=== PATIENT | female | born 1990 | race American Indian/Alaskan Native ===

== ENCOUNTER 2018-10-24 16:31 | Outpatient (CLI) | payer BC, MEDICAID ==
[2018-10-24] MEDS ORDERED: LACTATED RINGERS 500 ML IV ONE (17:07)
[2018-10-24 17:43] LABS: Bilirubin,Urine NEG (Negative); Blood,Urine NEG (Negative); Color,Urine Yellow (Yellow); Mucus,Urine FEW /HPF; Protein,Urine <15 mg/dL mg/dL (Negative); Urobilinogen,Urine < 2.0 mg/dL (<2.0); WBC,Urine < 1.0 /HPF (0.0-6.0)
[2018-10-24 18:20] LABS: Alanine Aminotransferase 25 units/L (7-56); Uric Acid 3.1 mg/dL (3.5-7.6)
[2018-10-24 18:25] LABS: Mean Corpuscular HGB Conc 36 % (30-34); Mean Corpuscular Volume 74 fl (79-97); Platelet Count 177 K/mm3 (140-440); Red Blood Count 4.43 M/mm3 (3.65-5.03)
[2018-10-24 18:29] LABS: Hematocrit 32.9 % (30.3-42.9)
[2018-10-24 19:50] VITALS: BP 138/93
--- NOTE | 2018-10-24 20:30 | Ultrasound Report ---
PROCEDURE: US OB BPP WO NON-STRESS TECHNIQUE: Limited ultrasound pelvis for BPP HISTORY: well being . RIZ[place]NA. Estimated age 36 weeks 6 days with EDC 11/15/2018 COMPARISONS: 10/24/2018 FINDINGS: Biophysical profile scoring 2 movement 2 tone 2 breathing 2fluid 8/8 overall score Presentation: Cephalic Activity: Monitored Placenta location: Anterior Cardiac motion: 152 BPM using M-mode doppler Amniotic Fluid Volume: Adequate RIZ[place]NA 7.4 cm (normal) IMPRESSION: Single viable at 36 weeks 6 days with 8/8 biophysical profile score This document is electronically signed by Mónica Wolff MD., October 24 2018 08:28:39 PM ET
--- NOTE | 2018-10-24 20:31 | Ultrasound Report ---
PROCEDURE: US OB LIMITED TECHNIQUE: Limited ultrasound pelvis for RIZ[place]NA HISTORY: well being . [place]IZ[place]NA. Estimated age 36 weeks 6 days with EDC 11/15/2018 COMPARISONS: 10/24/2018 FINDINGS: Biophysical profile scoring 2 movement 2 tone 2 breathing 2fluid / overall score Presentation: Cephalic Activity: Monitored Placenta location: Anterior Cardiac motion: 152 BPM using M-mode doppler Amniotic Fluid Volume: Adequate [place]IZ[place] 7.4 cm (normal) IMPRESSION: Single viable at 36 weeks 6 days with 7.4 cm RIZWANA which is normal. This document is electronically signed by Mónica Wolff MD., October 24 2018 08:29:58 PM ET
== END 2018-10-24 20:00 | disposition home or self-care (01) ==
LOC: TRG 16:31
PROVIDERS: ATTEND Obstetrics & Gynecology
DX: O47.03 False labor before 37 completed weeks of gestation, third trimester (principal); Z3A.37 37 weeks gestation of pregnancy
CPT/HCPCS: 36415; 59025; 76815; 76819; 81001; 82565; 83615; 84450; 84460; 84550; 85027

== ENCOUNTER 2018-10-29 14:03 | Inpatient (IN) | payer BC, MEDICAID ==
[2018-10-29] MEDS ORDERED: NARCAN 0.4 MG/1 ML IV PRN (17:00)
[2018-10-29] MEDS ORDERED: MINERAL OIL PO PRN (17:00)
[2018-10-29] MEDS ORDERED: SUBLIMAZE IV PRN (17:00)
[2018-10-29] MEDS ORDERED: BRETHINE SUB-Q PRN (17:00)
[2018-10-29] MEDS ORDERED: PITOCin/NS 30 UNIT/500ML 30 UNITS/500 ML BAG IV SCH ×2 (17:00)
[2018-10-29] MEDS ORDERED: PHENERGAN PO PRN (17:00)
[2018-10-29] MEDS ORDERED: BRETHINE IVP PRN (17:00)
[2018-10-29] MEDS ORDERED: STADOL IV PRN (17:00)
[2018-10-29] MEDS ORDERED: PITOCin/NS 20 UNIT/1000ML DRIP 20 UNITS/1,000 ML BAG IV SCH (17:00)
[2018-10-29] MEDS ORDERED: ZOFRAN IV PRN (17:00)
--- NOTE | 2018-10-29 17:10 | History and Physical Report ---
History of Present Illness Date of examination: 10/29/18 Date of admission: 10/29/18 Chief complaint: Headache, vomiting, and elevated BP History of present illness: Pt has been experiencing headache since yesterday, and vomited today before presenting to triage. Her BP per her RN sister was mild range. She was evaluated at [facility] 5 days ago for preeclampsia, and labs were normal. BP was mild range. She is feeling +FM, no LOF, contractions, or vaginal bleeding. Past History Past Medical History: no pertinent history Past Surgical History: D&C Social history: no significant social history - Obstetrical History Expected Date of Delivery: 11/15/18 Actual Gestation: 37 Week(s) 4 Day(s) : 3 Para: 0 Hx # Term Pregnancies: 0 Number of Pregnancies: 0 Spontaneous Abortions: 1 Induced : 1 Number of Living Children: 0 Medications and Allergies Allergies Allergy/AdvReac Type Severity Reaction Status Date / Time No Known Allergies Allergy Verified 10/24/18 17:10 Active Meds: Active Medications Butorphanol Tartrate (Stadol) 1 mg IV Q2H PRN PRN Reason: Pain, Moderate (4-6) Ephedrine Sulfate (Ephedrine Sulfate) 10 mg IV Q2M PRN PRN Reason: Hypotension Fentanyl (Sublimaze) 100 mcg IV Q2H PRN PRN Reason: Labor Pain Oxytocin/Sodium Chloride (Pitocin/Ns 20 Unit/1000ml Drip) 20 units in 1,000 mls @ 125 mls/hr IV DIRECT BEAU Oxytocin/Sodium Chloride (Pitocin/Ns 30 Unit/500ml) 30 units in 500 mls @ 1 mls/hr IV TITR BEAU; Protocol Oxytocin/Sodium Chloride (Pitocin/Ns 30 Unit/500ml) 30 units in 500 mls @ 2 mls/hr IV TITR BEAU; Protocol Lactated Ringer's (Lactated Ringers) 1,000 mls @ 125 mls/hr IV DIRECT BEAU Ampicillin Sodium (Ampicillin/Ns 2 Gm/100 Ml) 2 gm in 100 mls @ 100 mls/hr IV ONCE ONE; Protocol Stop: 10/29/18 17:59 Lidocaine (Xylocaine 2%) 20 ml INFILTRATI ONCE ONE Stop: 10/29/18 17:01 Mineral Oil (Mineral Oil) 30 ml PO QHS PRN PRN Reason: Constipation Naloxone HCl (Narcan 0.4 Mg/1 Ml) 0.1 mg IV Q2MIN PRN PRN Reason: Res Rate </= 8 or 02 SAT < 92% Ondansetron HCl (Zofran) 4 mg IV Q8H PRN PRN Reason: Nausea And Vomiting Promethazine HCl (Phenergan) 25 mg PO Q6H PRN PRN Reason: Nausea And Vomiting Terbutaline Sulfate (Brethine) 0.25 mg SUB-Q ONCE PRN PRN Reason: Hyperstimulation/Hypertonicity Terbutaline Sulfate (Brethine) 0.25 mg IVP ONCE PRN PRN Reason: Hyperstimulation/Hypertonicity Review of Systems Constitutional: chronic headaches Eyes: no blurred vision, no photophobia Cardiovascular: edema (Bilateral wrists), high blood pressure, leg edema, no chest pain, no shortness of breath Respiratory: no shortness of breath Breasts: deferred Gastrointestinal: nausea, vomiting, no abdominal pain Genitourinary: no vaginal bleeding, no vaginal discharge, no leakage of fluid Neurological: headaches, no seizures - Vital Signs Vital signs: Vital Signs Pulse BP 84 130/83 10/29/18 14:31 10/29/18 14:31 Temp Pulse Resp BP Pulse Ox 91 H 18 157/78 10/29/18 16:47 10/29/18 14:48 10/29/18 16:47 - Physical Exam Breasts: Positive: deferred Cardiovascular: Regular rate, Normal S1, Normal S2, No murmurs Lungs: Positive: Clear to auscultation, Normal air movement Abdomen: Positive: normal appearance, soft Genitourinary (Female): Positive: normal external genitalia, normal perenium Vagina: Positive: normal moisture Cervix: Positive: other (3.5/50/-1) Uterus: Positive: normal size, normal contour Deep Tendon Reflex Grade: Normal +2 - Obstetrical FHR: auscultation normal, category 1 Uterine Contraction Monitor Mode: External Cervical Dilatation: 3.5 Cervical Effacement Percentage: 50 station: -1 Uterine Contraction Pattern: Absent Results All other labs normal. Assessment and Plan A: 1. 27 yo at 37.4 wks EGA with preeclampsia 2. GBS positive 3. Cervix favorable P: 1. Begin Magnesium Sulfate infusion, check serum levels q6hrs, neuro checks q4hrs 2. Start Ampicillin infusion 3. Begin Pitocin induction of labor, anticipate - Patient Problems (1) Preeclampsia Onset Date: ~10/29/18 Current Visit: Yes Status: Acute
[2018-10-29] MEDS ORDERED: NORMODYNE IV ONE (17:25)
[2018-10-29 17:42] LABS: Hematocrit 35.8 % (30.3-42.9); Hemoglobin 12.4 gm/dl (10.1-14.3); Mean Corpuscular HGB Conc 35 % (30-34); Mean Corpuscular Volume 75 fl (79-97); Platelet Count 189 K/mm3 (140-440); Red Blood Count 4.76 M/mm3 (3.65-5.03); Red Cell Distribution Width 15.1 % (13.2-15.2)
[2018-10-29 17:57] LABS: Uric Acid 2.7 mg/dL (3.5-7.6)
[2018-10-29] MEDS ORDERED: LACTATED RINGERS 1,000 ML IV SCH ×2 (18:00)
[2018-10-29] MEDS ORDERED: XYLOCAINE 2% INFILTRATI ONE (18:00)
[2018-10-29] MEDS ORDERED: AMPICILLIN/NS 2 GM/100 ML 2 GM/100 ML BAG IV ONE (18:00)
[2018-10-29] MEDS ORDERED: MAGNESIUM SULFATE 4GM/100ML 4 GM/100 ML BAG IV ONE (18:00)
[2018-10-29] MEDS: MAGNESIUM SULFATE 40GM/1000ML 40 GM/1,000 ML BAG IV SCH (18:12)
[2018-10-29 18:13] LABS: Bilirubin,Urine NEG (Negative); Blood,Urine SM (Negative); Color,Urine Yellow (Yellow); Protein,Urine <15 mg/dL mg/dL (Negative)
[2018-10-29 18:28] LABS: Creatinine,Urine 117.8 mg/dL (0.1-20.0); Protein/Creatinine Ratio,Urine 0.2
[2018-10-29] MEDS: AMPICILLIN/NS 1 GM/50 ML 1 GM/50 ML BAG IV SCH (22:23)
[2018-10-30] MEDS: AMPICILLIN/NS 1 GM/50 ML 1 GM/50 ML BAG IV SCH ×2 (02:49→06:30)
[2018-10-30] MEDS ORDERED: MARCAINE 0.25% INFILTRATI ONE (05:22)
[2018-10-30] MEDS ORDERED: fentaNYL-BUPIV 2 MCG/ML-0.125% 200 MCG/100 ML BAG EPIDURAL ONE (05:49)
--- NOTE | 2018-10-30 07:57 | Progress Note ---
Assessment and Plan A/P IUP 37+ weeks PIH labs normal on mag continue pitocin for IOL of preeclampsia arom clear expect vaginal delivery Subjective - Subjective Date of service: 10/30/18 Principal diagnosis: PIH, obesity, IOL Patient reports: movement normal, contractions, no new complaints, no loss of fluid Objective - Vital Signs Vital Signs: Vital Signs - 12hr 10/29/18 10/29/18 10/29/18 19:56 20:01 20:05 Temperature Pulse Rate 90 94 H 82 Respiratory Rate Blood Pressure Blood Pressure [Left] O2 Sat by Pulse 100 100 100 Oximetry 10/29/18 10/29/18 10/29/18 20:10 20:16 20:21 Temperature Pulse Rate 85 84 82 Respiratory Rate Blood Pressure Blood Pressure [Left] O2 Sat by Pulse 100 100 100 Oximetry 10/29/18 10/29/18 10/29/18 20:26 20:30 20:35 Temperature Pulse Rate 89 104 H 88 Respiratory Rate Blood Pressure Blood Pressure [Left] O2 Sat by Pulse 100 93 100 Oximetry 10/29/18 10/29/18 10/29/18 20:41 20:45 20:47 Temperature Pulse Rate 89 93 H 79 Respiratory Rate Blood Pressure Blood Pressure [Left] O2 Sat by Pulse 100 100 94 Oximetry 10/29/18 10/29/18 10/29/18 20:50 20:52 20:55 Temperature Pulse Rate 85 83 94 H Respiratory Rate Blood Pressure 147/85 Blood Pressure [Left] O2 Sat by Pulse 100 100 Oximetry 10/29/18 10/29/18 10/29/18 21:01 21:06 21:11 Temperature Pulse Rate 86 84 91 H Respiratory Rate Blood Pressure Blood Pressure [Left] O2 Sat by Pulse 100 91 100 Oximetry 10/29/18 10/29/18 10/29/18 21:16 21:21 21:26 Temperature Pulse Rate 91 H 83 86 Respiratory Rate Blood Pressure Blood Pressure [Left] O2 Sat by Pulse 100 99 100 Oximetry 10/29/18 10/29/18 10/29/18 21:31 21:36 21:41 Temperature Pulse Rate 82 95 H 92 H Respiratory Rate Blood Pressure Blood Pressure [Left] O2 Sat by Pulse 99 99 99 Oximetry 10/29/18 10/29/18 10/29/18 21:46 21:51 21:53 Temperature Pulse Rate 88 94 H 84 Respiratory Rate Blood Pressure 154/90 Blood Pressure [Left] O2 Sat by Pulse 100 98 Oximetry 10/29/18 10/29/18 10/29/18 21:56 22:01 22:06 Temperature Pulse Rate 88 82 96 H Respiratory Rate Blood Pressure Blood Pressure [Left] O2 Sat by Pulse 99 100 100 Oximetry 10/29/18 10/29/18 10/29/18 22:11 22:16 22:21 Temperature Pulse Rate 87 97 H 91 H Respiratory Rate Blood Pressure Blood Pressure [Left] O2 Sat by Pulse 100 100 100 Oximetry 10/29/18 10/29/18 10/29/18 22:26 22:31 22:36 Temperature Pulse Rate 89 86 88 Respiratory Rate Blood Pressure Blood Pressure [Left] O2 Sat by Pulse 100 100 100 Oximetry 10/29/18 10/29/18 10/29/18 22:41 22:46 22:51 Temperature Pulse Rate 82 88 89 Respiratory Rate Blood Pressure Blood Pressure [Left] O2 Sat by Pulse 100 100 100 Oximetry 10/29/18 10/29/18 10/29/18 22:52 22:56 23:01 Temperature Pulse Rate 78 84 87 Respiratory Rate Blood Pressure 136/90 Blood Pressure [Left] O2 Sat by Pulse 100 100 Oximetry 10/29/18 10/29/18 10/29/18 23:06 23:11 23:16 Temperature Pulse Rate 78 88 93 H Respiratory Rate Blood Pressure Blood Pressure [Left] O2 Sat by Pulse 100 100 100 Oximetry 10/29/18 10/29/18 10/29/18 23:18 23:19 23:21 Temperature 96.8 F L Pulse Rate 91 H 89 84 Respiratory 18 Rate Blood Pressure 158/92 Blood Pressure 156/92 [Left] O2 Sat by Pulse 100 100 Oximetry 10/29/18 10/29/18 10/29/18 23:26 23:31 23:36 Temperature Pulse Rate 89 82 88 Respiratory Rate Blood Pressure Blood Pressure [Left] O2 Sat by Pulse 100 100 100 Oximetry 10/29/18 10/29/18 10/29/18 23:41 23:46 23:51 Temperature Pulse Rate 87 89 83 Respiratory Rate Blood Pressure 146/93 Blood Pressure [Left] O2 Sat by Pulse 100 100 100 Oximetry 10/29/18 10/30/18 10/30/18 23:56 00:01 00:06 Temperature Pulse Rate 82 87 82 Respiratory Rate Blood Pressure Blood Pressure [Left] O2 Sat by Pulse 100 100 100 Oximetry 10/30/18 10/30/18 10/30/18 00:11 00:16 00:20 Temperature Pulse Rate 94 H 83 109 H Respiratory Rate Blood Pressure Blood Pressure [Left] O2 Sat by Pulse 100 100 92 Oximetry 10/30/18 10/30/18 10/30/18 00:21 00:26 00:31 Temperature Pulse Rate 104 H 80 92 H Respiratory Rate Blood Pressure Blood Pressure [Left] O2 Sat by Pulse 97 100 100 Oximetry 10/30/18 10/30/18 10/30/18 00:36 00:41 00:46 Temperature Pulse Rate 83 83 84 Respiratory Rate Blood Pressure Blood Pressure [Left] O2 Sat by Pulse 100 100 100 Oximetry 10/30/18 10/30/18 10/30/18 00:51 00:56 01:01 Temperature Pulse Rate 104 H 83 93 H Respiratory Rate Blood Pressure 154/90 Blood Pressure [Left] O2 Sat by Pulse 74 L 100 100 Oximetry 10/30/18 10/30/18 10/30/18 01:06 01:11 01:16 Temperature Pulse Rate 82 100 H 103 H Respiratory Rate Blood Pressure Blood Pressure [Left] O2 Sat by Pulse 100 100 100 Oximetry 10/30/18 10/30/18 10/30/18 01:21 01:26 01:31 Temperature Pulse Rate 81 84 82 Respiratory Rate Blood Pressure Blood Pressure [Left] O2 Sat by Pulse 100 100 100 Oximetry 10/30/18 10/30/18 10/30/18 01:36 01:41 01:43 Temperature Pulse Rate 94 H 93 H 104 H Respiratory Rate Blood Pressure Blood Pressure [Left] O2 Sat by Pulse 100 100 76 L Oximetry 10/30/18 10/30/18 10/30/18 01:46 01:51 01:52 Temperature Pulse Rate 90 95 H 86 Respiratory Rate Blood Pressure 145/82 Blood Pressure [Left] O2 Sat by Pulse 100 99 Oximetry 10/30/18 10/30/18 10/30/18 01:54 01:56 02:01 Temperature Pulse Rate 35 L 86 87 Respiratory Rate Blood Pressure Blood Pressure [Left] O2 Sat by Pulse 94 100 100 Oximetry 10/30/18 10/30/18 10/30/18 02:06 02:11 02:16 Temperature Pulse Rate 88 87 88 Respiratory Rate Blood Pressure Blood Pressure [Left] O2 Sat by Pulse 100 100 100 Oximetry 10/30/18 10/30/18 10/30/18 02:21 02:26 02:30 Temperature Pulse Rate 87 98 H 91 H Respiratory Rate Blood Pressure Blood Pressure [Left] O2 Sat by Pulse 100 100 86 Oximetry 10/30/18 10/30/18 10/30/18 02:31 02:36 02:41 Temperature Pulse Rate 90 92 H 84 Respiratory Rate Blood Pressure Blood Pressure [Left] O2 Sat by Pulse 100 100 100 Oximetry 10/30/18 10/30/18 10/30/18 02:46 02:51 02:56 Temperature Pulse Rate 89 90 103 H Respiratory Rate Blood Pressure 156/101 Blood Pressure [Left] O2 Sat by Pulse 99 100 100 Oximetry 10/30/18 10/30/18 10/30/18 03:01 03:06 03:11 Temperature Pulse Rate 87 89 91 H Respiratory Rate Blood Pressure Blood Pressure [Left] O2 Sat by Pulse 100 100 99 Oximetry 10/30/18 10/30/18 10/30/18 03:16 03:21 03:26 Temperature Pulse Rate 86 102 H 89 Respiratory Rate Blood Pressure Blood Pressure [Left] O2 Sat by Pulse 99 100 98 Oximetry 10/30/18 10/30/18 10/30/18 03:31 03:36 03:41 Temperature Pulse Rate 89 92 H 102 H Respiratory Rate Blood Pressure Blood Pressure [Left] O2 Sat by Pulse 98 98 97 Oximetry 10/30/18 10/30/18 10/30/18 03:46 03:51 03:56 Temperature Pulse Rate 83 86 95 H Respiratory Rate Blood Pressure 142/90 Blood Pressure [Left] O2 Sat by Pulse 99 97 99 Oximetry 10/30/18 10/30/18 10/30/18 04:00 04:01 04:06 Temperature 97.7 F Pulse Rate 90 100 H 94 H Respiratory Rate Blood Pressure Blood Pressure 140/90 [Left] O2 Sat by Pulse 98 100 Oximetry 10/30/18 10/30/18 10/30/18 04:11 04:16 04:21 Temperature Pulse Rate 83 88 91 H Respiratory Rate Blood Pressure Blood Pressure [Left] O2 Sat by Pulse 100 98 99 Oximetry 10/30/18 10/30/18 10/30/18 04:26 04:31 04:36 Temperature Pulse Rate 92 H 85 91 H Respiratory Rate Blood Pressure Blood Pressure [Left] O2 Sat by Pulse 98 98 97 Oximetry 10/30/18 10/30/18 10/30/18 04:37 04:41 04:46 Temperature Pulse Rate 100 H 90 95 H Respiratory Rate Blood Pressure Blood Pressure [Left] O2 Sat by Pulse 86 100 100 Oximetry 10/30/18 10/30/18 10/30/18 04:51 04:56 05:00 Temperature Pulse Rate 96 H 91 H 97 H Respiratory Rate Blood Pressure 151/105 Blood Pressure [Left] O2 Sat by Pulse 100 100 69 L Oximetry 10/30/18 10/30/18 10/30/18 05:01 05:06 05:11 Temperature Pulse Rate 100 H 105 H 99 H Respiratory Rate Blood Pressure Blood Pressure [Left] O2 Sat by Pulse 100 100 100 Oximetry 10/30/18 10/30/18 10/30/18 05:16 05:20 05:21 Temperature Pulse Rate 96 H 110 H 110 H Respiratory Rate Blood Pressure Blood Pressure [Left] O2 Sat by Pulse 100 83 L 100 Oximetry 10/30/18 10/30/18 10/30/18 05:28 05:29 05:34 Temperature Pulse Rate 108 H 103 H 101 H Respiratory Rate Blood Pressure Blood Pressure [Left] O2 Sat by Pulse 68 L 100 100 Oximetry 10/30/18 10/30/18 10/30/18 05:35 05:38 05:39 Temperature Pulse Rate 98 H 104 H 99 H Respiratory Rate Blood Pressure 140/93 144/99 Blood Pressure [Left] O2 Sat by Pulse 99 Oximetry 10/30/18 10/30/18 10/30/18 05:41 05:44 05:47 Temperature Pulse Rate 100 H 99 H 96 H Respiratory Rate Blood Pressure 149/88 142/90 140/85 Blood Pressure [Left] O2 Sat by Pulse 83 L Oximetry 10/30/18 10/30/18 10/30/18 05:49 05:50 05:53 Temperature Pulse Rate 93 H 94 H Respiratory 18 Rate Blood Pressure 144/89 155/87 Blood Pressure [Left] O2 Sat by Pulse 100 Oximetry 10/30/18 10/30/18 10/30/18 05:54 05:56 05:59 Temperature Pulse Rate 94 H 98 H 90 Respiratory Rate Blood Pressure 150/86 146/86 Blood Pressure [Left] O2 Sat by Pulse 100 Oximetry 10/30/18 10/30/18 10/30/18 06:00 06:02 06:05 Temperature Pulse Rate 91 H 94 H 93 H Respiratory Rate Blood Pressure 147/85 143/88 Blood Pressure [Left] O2 Sat by Pulse 100 Oximetry 10/30/18 10/30/18 10/30/18 06:06 06:11 06:15 Temperature Pulse Rate 92 H 92 H 101 H Respiratory Rate Blood Pressure 143/92 Blood Pressure [Left] O2 Sat by Pulse 100 100 Oximetry 10/30/18 10/30/18 10/30/18 06:16 06:26 06:35 Temperature Pulse Rate 92 H 96 H 93 H Respiratory Rate Blood Pressure 152/89 153/92 Blood Pressure [Left] O2 Sat by Pulse 100 Oximetry 10/30/18 10/30/18 10/30/18 06:36 06:37 06:42 Temperature Pulse Rate 63 89 90 Respiratory Rate Blood Pressure Blood Pressure [Left] O2 Sat by Pulse 89 100 100 Oximetry 10/30/18 10/30/18 10/30/18 06:45 06:47 06:52 Temperature Pulse Rate 92 H 94 H 94 H Respiratory Rate Blood Pressure 143/86 Blood Pressure [Left] O2 Sat by Pulse 98 100 Oximetry 10/30/18 10/30/18 10/30/18 06:55 06:57 07:02 Temperature Pulse Rate 94 H 89 88 Respiratory Rate Blood Pressure 137/85 Blood Pressure [Left] O2 Sat by Pulse 99 99 Oximetry 10/30/18 10/30/18 10/30/18 07:06 07:07 07:12 Temperature Pulse Rate 85 95 H 89 Respiratory Rate Blood Pressure 142/92 Blood Pressure [Left] O2 Sat by Pulse 98 100 Oximetry 10/30/18 10/30/18 10/30/18 07:15 07:17 07:22 Temperature Pulse Rate 85 89 104 H Respiratory Rate Blood Pressure 145/92 Blood Pressure [Left] O2 Sat by Pulse 99 99 Oximetry 10/30/18 10/30/18 10/30/18 07:25 07:27 07:30 Temperature Pulse Rate 94 H 87 94 H Respiratory Rate Blood Pressure 144/96 Blood Pressure [Left] O2 Sat by Pulse 86 98 92 Oximetry 10/30/18 10/30/18 10/30/18 07:32 07:35 07:37 Temperature Pulse Rate 87 101 H 93 H Respiratory Rate Blood Pressure 156/97 Blood Pressure [Left] O2 Sat by Pulse 98 98 Oximetry 10/30/18 10/30/18 10/30/18 07:42 07:45 07:46 Temperature Pulse Rate 92 H 89 79 Respiratory Rate Blood Pressure 139/93 Blood Pressure [Left] O2 Sat by Pulse 98 76 L Oximetry 10/30/18 10/30/18 07:47 07:52 Temperature Pulse Rate 84 94 H Respiratory Rate Blood Pressure Blood Pressure [Left] O2 Sat by Pulse 100 90 Oximetry - Exam Breasts: normal Cardiovascular: Regular rate, Normal S1 Lungs: Clear to auscultation, Normal air movement Abdomen: Present: normal appearance, soft, normal bowel sounds. Absent: distention, tenderness, guarding Uterus: Present: normal, firm, fundal height below umbilicus. Absent: bogginess, tenderness FHR: auscultation normal, category 1 Cervical Dilatation: 6 Cervical Effacement Percentage: 100 station: -1 Uterine Contraction Pattern: Regular Extremities: normal Deep Tendon Reflex Grade: Normal +2 - Labs Labs: Abnormal Labs 10/29/18 10/29/18 10/29/18 15:44 15:44 17:56 MCV 75 L MCH 26 L MCHC 35 H Uric Acid 2.7 L Magnesium Urine Creatinine 117.8 H Urine Total Protein 23 H 10/29/18 10/30/18 21:04 03:21 MCV MCH MCHC Uric Acid Magnesium 3.50 H 4.20 H Urine Creatinine Urine Total Protein Laboratory Results - last 24 hr 10/29/18 10/29/18 10/29/18 15:30 15:30 15:44 WBC 8.3 RBC 4.76 Hgb 12.4 Hct 35.8 MCV 75 L MCH 26 L MCHC 35 H RDW 15.1 Plt Count 189 Uric Acid Magnesium 1.80 AST ALT Urine Color Urine Turbidity Urine pH Ur Specific [place] Urine Protein Urine Glucose (UA) Urine Ketones Urine Blood Urine Nitrite Urine Bilirubin Urine Urobilinogen Ur Leukocyte Esterase Urine WBC (Auto) Urine RBC (Auto) U Epithel Cells (Auto) Urine Creatinine Protein/Creatinin Ratio Urine Total Protein Blood Type O POSITIVE Antibody Screen Negative 10/29/18 10/29/18 10/29/18 15:44 17:56 17:56 WBC RBC Hgb Hct MCV MCH MCHC RDW Plt Count Uric Acid 2.7 L Magnesium AST 23 ALT 23 Urine Color Yellow Urine Turbidity Clear Urine pH 7.0 Ur Specific [place] 1.015 Urine Protein <15 mg/dl Urine Glucose (UA) Neg Urine Ketones Neg Urine Blood Sm Urine Nitrite Neg Urine Bilirubin Neg Urine Urobilinogen 2.0 Ur Leukocyte Esterase Neg Urine WBC (Auto) 1.0 Urine RBC (Auto) 14.0 U Epithel Cells (Auto) 2.0 Urine Creatinine 117.8 H Protein/Creatinin Ratio 0.20 Urine Total Protein 23 H Blood Type Antibody Screen 10/29/18 10/30/18 21:04 03:21 WBC RBC Hgb Hct MCV MCH MCHC RDW Plt Count Uric Acid Magnesium 3.50 H 4.20 H AST ALT Urine Color Urine Turbidity Urine pH Ur Specific [place] Urine Protein Urine Glucose (UA) Urine Ketones Urine Blood Urine Nitrite Urine Bilirubin Urine Urobilinogen Ur Leukocyte Esterase Urine WBC (Auto) Urine RBC (Auto) U Epithel Cells (Auto) Urine Creatinine Protein/Creatinin Ratio Urine Total Protein Blood Type Antibody Screen
[2018-10-30] MEDS ORDERED: CYTOTEC PR NR (08:25)
[2018-10-30] MEDS ORDERED: XYLOCAINE 2% INFILTRATI ONE (11:29)
[2018-10-30] MEDS ORDERED: PHENERGAN PR PRN (11:47)
[2018-10-30] MEDS ORDERED: TORADOL IV PRN (11:47)
[2018-10-30] MEDS ORDERED: PERCOCET 5/325 PO PRN (11:47)
[2018-10-30] MEDS ORDERED: LANSINOH TP PRN (11:47)
[2018-10-30] MEDS ORDERED: TUCKS PAD TP PRN (11:47)
[2018-10-30] MEDS ORDERED: DULCOLAX PR PRN (11:47)
[2018-10-30] MEDS ORDERED: TYLENOL PO PRN (11:47)
[2018-10-30] MEDS ORDERED: NORCO 5/325 PO PRN (11:47)
[2018-10-30] MEDS ORDERED: BENADRYL PO PRN (11:47)
[2018-10-30] MEDS ORDERED: MILK OF MAGNESIA PO PRN (11:47)
[2018-10-30] MEDS ORDERED: ZOFRAN IV PRN (11:47)
[2018-10-30] MEDS ORDERED: PHENERGAN PO PRN (11:47)
--- NOTE | 2018-10-30 11:52 | Procedure Note ---
OB Delivery Note - Delivery Date of Delivery: 10/30/18 Surgeon: DEBORAH CALHOUN Estimated blood loss: 500cc - Vaginal Delivery presentation: vertex Delivery position: OA Intrapartum events: preeclampsia Delivery augmentation: rupture of membranes, pitocin Route of delivery: Delivery placenta: spontaneous Delivery cord: 3 umbilical vessels Episiotomy: none Delivery laceration: vaginal side wall (b/l hemostatic : no repair ) Anesthesia: epidural Delivery comments: patient was noted to be c/c/ +1 and commenced to pushing a viable female infant at 1116 in MICHAEL presentation. She delivered head and shoulders easily. Delay in clamping. The cord was clamped and cut after 60 sec delay. The placenta delivered at 1119 intact with 3 vessel cord. No laceration noted. EBL 500 cc. 1 000 mcg cytotec placed OR. Weight 6 pounds and 6 oz. Excellent hemostasis noted. Patient to remain on unit for Mag for 24 hr PP
[2018-10-30] MEDS ORDERED: PITOCin/NS 20 UNIT/1000ML DRIP 20 UNITS/1,000 ML BAG IV SCH (12:00)
[2018-10-30] MEDS ORDERED: SODIUM CHLORIDE FLUSH SYRINGE 10 ML IV NR (12:00)
[2018-10-30] MEDS: MAGNESIUM SULFATE 40GM/1000ML 40 GM/1,000 ML BAG IV SCH (14:29)
[2018-10-30] MEDS: IBUPROFEN PO SCH (20:46)
[2018-10-30] MEDS: COLACE PO SCH (22:24)
[2018-10-31 00:28] LABS: Hematocrit 26.2 % (30.3-42.9); Hemoglobin 9.3 gm/dl (10.1-14.3)
[2018-10-31] MEDS ORDERED: M-M-R II VACCINE SUB-Q ONE (06:00)
[2018-10-31] MEDS ORDERED: BOOSTRIX IM ONE (06:00)
[2018-10-31] MEDS: IBUPROFEN PO SCH ×4 (06:29→23:54)
--- NOTE | 2018-10-31 08:28 | Progress Note ---
Assessment and Plan A: PPD#1 s/p at term Preeclampsia with severe features on magnesium sulfate for seizure prophylaxis Obesity Anemia P: Continue Magnesium fort 24 hrs after delivery (11:16 am) Routine care Initiate antihypertensives as needed Subjective - Subjective Date of service: 10/31/18 Principal diagnosis: PIH, obesity, IOL Interval history: Pt without complaints though looking forward to being off magnesium soon. Patient reports: appetite normal, pain well controlled, no voiding normally (Metz in place ), no ambulating normally (SCDs in place ) [place]: doing well Objective - Vital Signs Latest vital signs: Vital Signs Temp Pulse Resp BP BP Pulse Ox 10/31/18 06:47 83 100 10/31/18 06:42 85 100 10/31/18 06:37 90 100 10/31/18 06:32 88 100 10/31/18 06:30 98.0 F 16 100 10/31/18 06:27 87 100 10/31/18 06:25 83 122/76 10/31/18 06:22 85 100 10/31/18 06:17 86 100 10/31/18 06:12 85 100 10/31/18 06:07 84 100 10/31/18 06:02 82 100 10/31/18 05:58 76 85 10/31/18 05:57 80 100 10/31/18 05:52 86 100 10/31/18 05:47 85 100 10/31/18 05:42 82 100 10/31/18 05:37 81 100 10/31/18 05:32 80 100 10/31/18 05:28 82 90 10/31/18 05:27 84 100 10/31/18 05:22 80 100 10/31/18 05:18 83 136/79 10/31/18 05:17 88 54 L 10/31/18 05:07 107 H 145/99 10/31/18 04:07 83 132/76 10/31/18 03:07 87 123/73 10/31/18 02:07 81 129/64 10/31/18 01:07 86 136/67 10/31/18 00:55 98 H 100 10/31/18 00:32 77 129/69 10/30/18 23:07 93 H 128/60 10/30/18 22:18 96 H 134/90 10/30/18 22:10 96 H 20 134/90 10/30/18 22:07 87 136/92 10/30/18 21:07 110 H 136/93 10/30/18 21:00 98.4 F 117 H 20 130/66 10/30/18 20:51 98 H 100 10/30/18 20:46 96 H 100 10/30/18 20:41 96 H 130/86 100 10/30/18 20:36 102 H 100 10/30/18 20:31 103 H 100 10/30/18 20:26 96 H 100 10/30/18 20:21 96 H 100 10/30/18 20:16 103 H 100 10/30/18 20:11 98 H 100 10/30/18 20:10 117 H 143/103 10/30/18 20:07 106 H 132/93 10/30/18 20:06 102 H 100 10/30/18 20:05 98 H 133/91 10/30/18 20:01 114 H 100 10/30/18 19:56 93 H 100 10/30/18 19:51 90 100 10/30/18 16:35 90 100 10/30/18 16:30 92 H 99 10/30/18 16:25 94 H 100 10/30/18 16:20 89 141/91 99 10/30/18 16:19 76 80 L 10/30/18 15:29 100 H 98 10/30/18 15:25 121 H 94 10/30/18 15:24 91 H 98 10/30/18 15:19 93 H 99 10/30/18 15:14 102 H 100 10/30/18 15:13 86 136/86 10/30/18 15:11 102 H 84 10/30/18 15:09 93 H 100 10/30/18 15:04 109 H 99 10/30/18 14:59 91 H 100 10/30/18 14:54 113 H 97 10/30/18 14:49 93 H 100 10/30/18 14:44 91 H 99 10/30/18 14:39 89 100 10/30/18 14:34 112 H 100 10/30/18 14:29 90 100 10/30/18 14:24 92 H 99 10/30/18 14:19 97 H 99 10/30/18 13:59 93 H 134/86 10/30/18 13:56 94 H 100 10/30/18 13:51 94 H 100 10/30/18 13:46 96 H 100 10/30/18 13:41 100 H 100 10/30/18 13:36 97 H 100 10/30/18 13:31 94 H 100 10/30/18 13:26 104 H 100 10/30/18 13:21 103 H 100 10/30/18 13:16 108 H 100 10/30/18 13:11 112 H 100 10/30/18 13:07 107 H 131/78 10/30/18 13:06 107 H 100 10/30/18 13:01 118 H 100 10/30/18 13:00 117 H 87 10/30/18 12:58 106 H 123/75 10/30/18 12:55 119 H 100 10/30/18 12:50 116 H 100 10/30/18 12:48 111 H 78 L 10/30/18 12:45 113 H 144/108 100 10/30/18 12:40 110 H 100 10/30/18 12:35 109 H 151/99 100 10/30/18 12:30 110 H 100 10/30/18 12:25 112 H 152/98 99 10/30/18 12:21 106 H 141/97 10/30/18 12:20 112 H 99 10/30/18 12:08 107 H 100 10/30/18 12:05 101 H 153/90 10/30/18 12:03 103 H 100 10/30/18 11:58 102 H 99 10/30/18 11:57 100 H 92 10/30/18 11:55 103 H 144/95 10/30/18 11:45 94 H 148/95 10/30/18 11:35 93 H 145/91 10/30/18 11:25 101 H 151/95 10/30/18 11:15 131 H 128/85 10/30/18 11:05 112 H 161/116 10/30/18 10:55 116 H 140/98 10/30/18 10:45 98.3 F 102 H 18 152/93 10/30/18 10:36 96 H 148/88 10/30/18 10:25 90 145/90 10/30/18 10:16 99 H 160/92 10/30/18 10:05 91 H 149/96 10/30/18 09:56 89 138/85 10/30/18 09:46 86 141/87 10/30/18 09:36 90 135/73 10/30/18 09:26 88 140/87 10/30/18 09:16 90 137/85 10/30/18 09:05 89 138/87 10/30/18 08:55 88 148/90 10/30/18 08:46 97 H 143/94 10/30/18 08:36 87 138/89 Intake and Output 10/30/18 10/31/18 10/31/18 22:59 06:59 14:59 Intake Total 360 120 Output Total 1350 1400 Balance -990 -1280 Intake: Oral 360 120 Output: Urine 1350 1400 Indwelling Catheter 1350 1400 Other: Total, Intake Amount 120 0 Total, Output Amount 350 150 # Bowel Movements 1 - Exam Breasts: Present: deferred Cardiovascular: Present: Regular rate Lungs: Present: Clear to auscultation Abdomen: Present: soft (obese) Uterus: Present: fundal height at umbilicus Extremities: Present: edema (SCDs in place ) - Labs Labs: Abnormal lab results 10/30/18 10/30/18 Range/Units 15:30 23:52 Hgb 9.3 L D (10.1-14.3) gm/dl Hct 26.2 L D (30.3-42.9) % Magnesium 3.70 H (1.7-2.3) mg/dL
[2018-10-31] MEDS ORDERED: PRENATAL VITAMIN PO SCH (10:00)
[2018-10-31] MEDS: SENOKOT S PO SCH ×2 (23:51→23:55)
[2018-10-31] MEDS: COLACE PO SCH (23:52)
[2018-11-01] MEDS: IBUPROFEN PO SCH ×2 (05:57→12:13)
--- NOTE | 2018-11-01 09:05 | Discharge Summary ---
Providers - Providers Date of Admission: 10/29/18 17:27 Date of discharge: 11/01/18 Attending physician: JASON MARQUES Primary care physician: JASON MARQUES Hospitalization Reason for admission: induction of labor (for preeclampsia) Delivery: Episiotomy: none Laceration: vaginal side wall Other procedures: none complications: none Discharge diagnosis: IUP at term delivered Condition at discharge: Good Disposition: DC-01 TO HOME OR SELFCARE - Discharge Diagnoses (1) Preeclampsia Status: Acute Plan - Discharge Medications Prescriptions: Docusate Sodium [Colace CAP] 100 mg PO BID #30 capsule Ibuprofen [Motrin 600 MG tab] 600 mg PO Q6H #60 tablet - Provider Discharge Summary Activity: no sex for 6 weeks, no heavy lifting 4 weeks, no strenuous exercise Diet: routine Instructions: routine Additional instructions: [] Smoking cessation referral if applicable(refer to patient education folder for contact #) [] Refer to [facility] Booklet Call your doctor immediately for: * Fever > 100.5 * Heavy vaginal bleeding ( >1 pad per hour) * Severe persistent headache * Shortness of breath * Reddened, hot, painful area to leg or breast * Drainage or odor from incision. * Keep incision clean and dry at all times and follow doctor's instructions regarding bathing/showering Call to schedule blood pressure check in 5 days - Follow up plan Follow up: JASON MARQUES MD [Primary Care Provider] - 7 Days
--- NOTE | 2018-11-01 09:06 | Progress Note ---
Assessment and Plan - Patient Problems (1) Preeclampsia Onset Date: ~10/29/18 Current Visit: Yes Status: Acute Subjective - Subjective Date of service: 11/01/18 Principal diagnosis: PIH, obesity, IOL Interval history: Pt has been experiencing headache since yesterday, and vomited today before presenting to triage. Her BP per her RN sister was mild range. She was evaluated at [facility] 5 days ago for preeclampsia, and labs were normal. BP was mild range. She is feeling +FM, no LOF, contractions, or vaginal bleeding. Patient reports: appetite normal, voiding normally, pain well controlled, bowel movement, ambulating normally : doing well Objective - Vital Signs Latest vital signs: Vital Signs Temp Pulse Resp BP BP Pulse Ox 11/01/18 05:57 18 11/01/18 01:28 97.8 F 94 H 18 128/77 100 10/31/18 23:54 20 10/31/18 19:50 20 10/31/18 15:52 97.4 F L 79 18 139/92 10/31/18 12:53 104 H 144/76 10/31/18 12:07 86 124/83 10/31/18 11:43 103 H 100 10/31/18 11:38 101 H 100 10/31/18 11:33 81 100 10/31/18 11:28 84 100 10/31/18 11:23 89 100 10/31/18 11:18 90 100 10/31/18 11:13 89 100 10/31/18 11:12 88 139/83 92 10/31/18 10:01 93 H 138/79 93 10/31/18 10:00 98 H 16 138/79 100 - Exam Breasts: Present: deferred Cardiovascular: Present: Regular rate, Normal S1, Normal S2, No murmurs Lungs: Present: Clear to auscultation, Normal air movement Abdomen: Present: normal appearance, soft Uterus: Present: normal, firm, fundal height below umbilicus Extremities: Present: normal
[2018-11-01 09:17] VITALS: BP 136/96
[2018-11-01] MEDS: SENOKOT S PO SCH (12:10)
[2018-11-01] MEDS: COLACE PO SCH (12:14)
[2018-11-01] MEDS ORDERED: FEOSOL PO SCH (14:00)
== END 2018-11-01 15:24 | disposition home or self-care (01) | DRG 806 ==
LOC: TRG 14:03 → LD 17:27 → OB 10-31 13:16
PROVIDERS: ADMIT Obstetrics & Gynecology; ATTEND Obstetrics & Gynecology
PROC: 10E0XZZ Delivery of Products of Conception, External Approach (ICD-10-PCS; principal; 2018-10-30)
PROC: 3E0R3BZ Introduction of Anesthetic Agent into Spinal Canal, Percutaneous Approach (ICD-10-PCS; 2018-10-30)
PROC: 00HU33Z Insertion of Infusion Device into Spinal Canal, Percutaneous Approach (ICD-10-PCS; 2018-10-30)
PROC: 3E0234Z Introduction of Serum, Toxoid and Vaccine into Muscle, Percutaneous Approach (ICD-10-PCS; 2018-10-31)
DX: O14.13 Severe pre-eclampsia, third trimester (principal); D62 Acute posthemorrhagic anemia; Z37.0 Single live birth; Z3A.37 37 weeks gestation of pregnancy; O71.4 Obstetric high vaginal laceration alone; Z23 Encounter for immunization; O99.824 Streptococcus B carrier state complicating childbirth; O13.4 Gestational [pregnancy-induced] hypertension without significant proteinuria, complicating childbirth; O99.214 Obesity complicating childbirth; E66.9 Obesity, unspecified
CPT/HCPCS: 36415; 81001; 82570; 83735; 84156; 84450; 84460; 84550; 85014; 85018; 85027; 86592; 86850; 86900; 86901; G0378; J0290; J0595; J2590; J3010; J3475; J7120; Q0169